=== PATIENT | male | born 1950 | race Caucasian/White ===

== ENCOUNTER → 2016-03-02 | Outpatient (CLI) | payer MEDICARE, OTHER ==
[2016-03-02 10:01] LABS: Basophils # (A) 0.1 k/uL (0-0.2); Basophils % (A) 1 %; CHCM 32.5; Eosinophils # (A) 0.1 k/uL (0-0.7); Eosinophils % (A) 1 %; HCT 45.3 % (39.0-53.0); HDW 2.46; HGB 14.6 gm/dL (13.0-17.5); Luc # (Auto) 0.11; Luc % (Auto) 1; Lymphocytes % (A) 18 %; MCH 30.8 pg (25.0-35.0); MCHC 32.2 g/dL (31.0-37.0); MCV 95.7 fL (80.0-100.0); Mean Platelet Volume 7.5; Monocytes # (A) 0.6 k/uL (0-1.0); Monocytes % (A) 5 %; Neutrophils % (A) 74 %; RBC 4.74 m/uL (4.30-5.90); RDW 13.5 % (11.5-15.5); WBC 10.9 k/uL (3.8-10.6)
[2016-03-02 10:23] LABS: INR 1.1 (<1.1); Partial Thromboplastin Time 30.5 sec (22.0-30.0); Prothrombin Time 10.7 sec (9.0-12.0)
== END | disposition home or self-care (01) ==
LOC: LABWHC1 09:37
PROVIDERS: ATTEND Internal Medicine Critical Care Medicine
DX: Q33.9 Congenital malformation of lung, unspecified (principal)
CPT/HCPCS: 36415; 85025; 85610; 85730

== ENCOUNTER 2016-06-09 08:26 | Inpatient (IN) | payer MEDICARE, OTHER ==
[2016-06-09] MEDS ORDERED: ALBUTEROL NEBULIZED 2.5 MG/3 ML INHALATION STA (08:29)
[2016-06-09] MEDS ORDERED: IPRATROPIUM 0.5 MG/2.5 ML NEBU INHALATION STA (08:29)
[2016-06-09] MEDS ORDERED: methylPREDNISolone SOD SUCCI 125 MG/2 ML VIAL IV STA (08:29)
[2016-06-09] MEDS ORDERED: SODIUM CHLORIDE 0.9% 1,000 ML IV STA (08:29)
--- NOTE | 2016-06-09 08:46 | ED ---
General Adult HPI - General Chief complaint: Shortness of Breath Stated complaint: Difficulty Breathing Time Seen by Provider: 06/09/16 08:29 Source: EMS, RN notes reviewed, old records reviewed Mode of arrival: EMS Limitations: no limitations - History of Present Illness Initial comments: This is a 65-year-old male here for evaluation of shortness of cough and congestion. Patient suffers from COPD and asthma, patient's been out of inhaler at home and getting progressively worse, no fevers or chest pain. - Related Data Home Medications Medication Instructions Recorded Confirmed FLUoxetine HCL [PROzac] 40 mg PO QAM 11/10/14 08/14/15 Furosemide [Lasix] 40 mg PO QAM 11/10/14 08/14/15 Lisinopril [Prinivil] 20 mg PO QAM 11/10/14 08/14/15 Nitroglycerin Sl Tabs [Nitrostat] 0.4 mg SUBLINGUAL Q5M PRN 11/10/14 08/14/15 Pravastatin Sodium [Pravachol] 40 mg PO 11/10/14 08/14/15 Spironolactone [Aldactone] 25 mg PO QAM 11/10/14 08/14/15 Warfarin [Coumadin] 3 mg PO SUMOWEFRSA 11/10/14 08/12/15 Multivitamin [Men's Multi-Vitamin] 1 tab PO DAILY 06/12/15 08/12/15 Warfarin [Coumadin] 4.5 mg PO TUTH 06/12/15 08/12/15 FLUoxetine HCL [Fluoxetine HCl] 20 mg PO 07/23/15 08/14/15 Fluticasone/Vilanterol [Breo 1 puff INHALATION QA 08/12/15 08/14/15 Ellipta 100-25 Mcg Iinhaler] Ipratropium/Albuterol Sulfate 1 puff INHALATION TID PRN 08/12/15 08/14/15 [Combivent Respimat Inhaler] Metoprolol Tartrate [Lopressor] 100 mg PO BID 08/12/15 08/14/15 Allergies Allergy/AdvReac Type Severity Reaction Status Date / Time No Known Allergies Allergy Verified 08/12/15 15:59 Review of Systems ROS Statement: Those systems with pertinent positive or pertinent negative responses have been documented in the HPI. ROS Other: All systems not noted in ROS Statement are negative. Past Medical History Past Medical History: Atrial Fibrillation, Asthma, Heart Failure, COPD Additional Past Medical History / Comment(s): "2-masses right upper and lower lobes of lungs". Mildly mental impairMENT .PATIENT IS HIS OWN GUARDIAN. History of Any Multi-Drug Resistant Organisms: None Reported Past Surgical History: No Surgical Hx Reported Past Anesthesia/Blood Transfusion Reactions: No Reported Reaction Additional Past Anesthesia/Blood Transfusion Reaction / Comment(s): Never has general anesthesia,unknown family hx Past Psychological History: Depression Smoking Status: Former smoker Past Alcohol Use History: None Reported Additional Past Alcohol Use History / Comment(s): Smokes 1+ ppd SINCE 1963. Past Drug Use History: None Reported - Past Family History Mother History Unknown: Yes Father History Unknown: Yes General Exam Limitations: no limitations General appearance: alert, anxious Head exam: Present: atraumatic, normocephalic, normal inspection Eye exam: Present: normal appearance, PERRL, EOMI. Absent: scleral icterus, conjunctival injection, periorbital swelling ENT exam: Present: normal exam, mucous membranes moist Neck exam: Present: normal inspection. Absent: tenderness, meningismus, lymphadenopathy Respiratory exam: Present: normal lung sounds bilaterally, wheezes, rales, accessory muscle use, decreased breath sounds, prolonged expiratory. Absent: respiratory distress, rhonchi, stridor Cardiovascular Exam: Present: regular rate, normal rhythm, normal heart sounds. Absent: systolic murmur, diastolic murmur, rubs, gallop, clicks GI/Abdominal exam: Present: soft, normal bowel sounds. Absent: distended, tenderness, guarding, rebound, rigid Extremities exam: Present: normal inspection, full ROM, normal capillary refill. Absent: tenderness, pedal edema, joint swelling, calf tenderness Back exam: Present: normal inspection Neurological exam: Present: alert, oriented X3, CN II-XII intact Psychiatric exam: Present: normal affect, normal mood Skin exam: Present: warm, dry, intact, normal color. Absent: rash Course Vital Signs 06/09/16 06/09/16 06/09/16 08:28 09:03 09:15 Temperature 96.9 F L Pulse Rate 71 92 81 Respiratory 24 20 Rate Blood Pressure 163/102 171/87 O2 Sat by Pulse 97 100 Oximetry 06/09/16 10:14 Temperature 974 F H Pulse Rate 81 Respiratory 18 Rate Blood Pressure 155/80 O2 Sat by Pulse 99 Oximetry - Reevaluation(s) Reevaluation #1: 06/09/16 10:23 Patient does have significant improvement status post breathing treatment prolonged Medical Decision Making - Medical Decision Making 65-year-old male the ER for reevaluation shortness of breath, multifactorial shortness of breath including CHF COPD. Patient will be admitted for evaluation by cardiology [id number] breathing treatments and steroids. - Lab Data Result diagrams: 06/09/16 09:00 06/09/16 09:00 Lab Results 06/09/16 06/09/16 06/09/16 Range/Units 09:00 09:00 09:00 WBC 10.6 (3.8-10.6) k/uL RBC 4.40 (4.30-5.90) m/uL Hgb 13.9 (13.0-17.5) gm/dL Hct 41.4 (39.0-53.0) % MCV 94.1 (80.0-100.0) fL MCH 31.5 (25.0-35.0) pg MCHC 33.5 (31.0-37.0) g/dL RDW 14.6 (11.5-15.5) % Plt Count 225 (150-450) k/uL Neutrophils % 79 % Lymphocytes % 12 % Monocytes % 5 % Eosinophils % 1 % Basophils % 0 % Neutrophils # 8.3 H (1.3-7.7) k/uL Lymphocytes # 1.3 (1.0-4.8) k/uL Monocytes # 0.6 (0-1.0) k/uL Eosinophils # 0.1 (0-0.7) k/uL Basophils # 0.0 (0-0.2) k/uL PT (9.0-12.0) sec INR (<1.1) APTT (22.0-30.0) sec Sodium 142 (137-145) mmol/L Potassium 4.4 (3.5-5.1) mmol/L Chloride 108 H (98-107) mmol/L Carbon Dioxide 27 (22-30) mmol/L Anion Gap 7 mmol/L BUN 22 H (9-20) mg/dL Creatinine 0.84 (0.66-1.25) mg/dL Est GFR (MDRD) Af Amer >60 (>60 ml/min/1.73 sqM) Est GFR (MDRD) Non-Af >60 (>60 ml/min/1.73 sqM) Glucose 101 H (74-99) mg/dL Calcium 9.1 (8.4-10.2) mg/dL Magnesium 1.9 (1.6-2.3) mg/dL Total Bilirubin 0.8 (0.2-1.3) mg/dL AST 24 (17-59) U/L ALT 34 (21-72) U/L Alkaline Phosphatase 82 (38-126) U/L Total Creatine Kinase 29 L (55-170) U/L CK-MB (CK-2) 0.8 (0.0-2.4) ng/mL CK-MB (CK-2) Rel Index 2.8 Troponin I 0.012 (0.000-0.034) ng/mL NT-Pro-B Natriuret Pep pg/mL Total Protein 6.7 (6.3-8.2) g/dL Albumin 3.6 (3.5-5.0) g/dL 06/09/16 06/09/16 Range/Units 09:00 09:00 WBC (3.8-10.6) k/uL RBC (4.30-5.90) m/uL Hgb (13.0-17.5) gm/dL Hct (39.0-53.0) % MCV (80.0-100.0) fL MCH (25.0-35.0) pg MCHC (31.0-37.0) g/dL RDW (11.5-15.5) % Plt Count (150-450) k/uL Neutrophils % % Lymphocytes % % Monocytes % % Eosinophils % % Basophils % % Neutrophils # (1.3-7.7) k/uL Lymphocytes # (1.0-4.8) k/uL Monocytes # (0-1.0) k/uL Eosinophils # (0-0.7) k/uL Basophils # (0-0.2) k/uL PT 38.1 H (9.0-12.0) sec INR 3.9 (<1.1) APTT 34.7 H (22.0-30.0) sec Sodium (137-145) mmol/L Potassium (3.5-5.1) mmol/L Chloride (98-107) mmol/L Carbon Dioxide (22-30) mmol/L Anion Gap mmol/L BUN (9-20) mg/dL Creatinine (0.66-1.25) mg/dL Est GFR (MDRD) Af Amer (>60 ml/min/1.73 sqM) Est GFR (MDRD) Non-Af (>60 ml/min/1.73 sqM) Glucose (74-99) mg/dL Calcium (8.4-10.2) mg/dL Magnesium (1.6-2.3) mg/dL Total Bilirubin (0.2-1.3) mg/dL AST (17-59) U/L ALT (21-72) U/L Alkaline Phosphatase (38-126) U/L Total Creatine Kinase (55-170) U/L CK-MB (CK-2) (0.0-2.4) ng/mL CK-MB (CK-2) Rel Index Troponin I (0.000-0.034) ng/mL NT-Pro-B Natriuret Pep 9910 pg/mL Total Protein (6.3-8.2) g/dL Albumin (3.5-5.0) g/dL - Radiology Data Radiology results: report reviewed (Chest x-ray positive for CHF and COPD), image reviewed Disposition Clinical Impression: Acute exacerbation of chronic obstructive airways disease, Asthma with status asthmaticus, Acute pulmonary edema Disposition: ADMITTED IP TO THIS HOSP Condition: Fair Referrals: Shar De Los Santos MD [Primary Care Provider] - 1-2 days
[2016-06-09 09:18] LABS: INR 3.9 (<1.1); Partial Thromboplastin Time 34.7 sec (22.0-30.0); Prothrombin Time 38.1 sec (9.0-12.0)
[2016-06-09 09:22] LABS: ALT 34 U/L (21-72); AST 24 U/L (17-59); Alkaline Phosphatase 82 U/L (38-126); Anion Gap 7 mmol/L; Blood Urea Nitrogen 22 mg/dL (9-20); Calcium 9.1 mg/dL (8.4-10.2); Carbon Dioxide 27 mmol/L (22-30); Chloride 108 mmol/L (98-107); Glucose 101 mg/dL (74-99); Magnesium 1.9 mg/dL (1.6-2.3); Non-African American GFR(MDRD) >60 (>60 ml/min/1.73 sqM); Potassium 4.4 mmol/L (3.5-5.1); Sodium 142 mmol/L (137-145); Total Bilirubin 0.8 mg/dL (0.2-1.3); Total Protein 6.7 g/dL (6.3-8.2)
[2016-06-09 09:23] LABS: Basophils % (A) 0 %; CH 30.6; CHCM 32.7; Eosinophils # (A) 0.1 k/uL (0-0.7); Eosinophils % (A) 1 %; HCT 41.4 % (39.0-53.0); HDW 3.03; HGB 13.9 gm/dL (13.0-17.5); Luc # (Auto) 0.23; Luc % (Auto) 2; Lymphocytes # (A) 1.3 k/uL (1.0-4.8); Lymphocytes % (A) 12 %; MCH 31.5 pg (25.0-35.0); MCHC 33.5 g/dL (31.0-37.0); MCV 94.1 fL (80.0-100.0); Mean Platelet Volume 6.9; Monocytes # (A) 0.6 k/uL (0-1.0); Monocytes % (A) 5 %; Neutrophils # (A) 8.3 k/uL (1.3-7.7); Neutrophils % (A) 79 %; RDW 14.6 % (11.5-15.5); WBC 10.6 k/uL (3.8-10.6); WBC (Perox) 10.61
[2016-06-09 09:57] LABS: Creatine Kinase MB 0.8 ng/mL (0.0-2.4); Troponin I 0.012 ng/mL (0.000-0.034)
--- NOTE | 2016-06-09 09:57 | XR ---
EXAMINATION TYPE: XR chest 2V DATE OF EXAM: 06/09/2016 9:49 AM COMPARISON: Chest x-ray and CT chest August 14, 2015. PET/CT June 29, 2015. HISTORY: History of emphysema presents with shortness of breath for a few days. TECHNIQUE: Frontal and lateral views of the chest are obtained. FINDINGS: Osseous structures are intact. There is cardiomegaly with atherosclerotic thoracic aorta pr esent. There is background of moderate emphysematous change. There are new small bilateral pleural ef fusions and mild central vascular congestion. There is right hilar nodularity and new left midlung no dularity noted. No pneumothorax is seen bilaterally. IMPRESSION: 1. Suspect CHF exacerbation as there is cardiomegaly with new central vascular congestion and small b ilateral pleural effusions. Clinical correlation advised. 2. There is background of chronic emphysematous change with more prominent right hilar and new left m id lung lateral nodularity raising concern for neoplastic progression. Advise CT or PET/CT confirmati on based on clinical correlation.
[2016-06-09] MEDS: SODIUM CHLORIDE 0.9% 1,000 ML IV SCH (11:49)
[2016-06-09] MEDS: INSULIN LISPRO (humaLOG) 300 UNIT/3 ML VIAL SQ SCH ×3 (11:52→21:36)
[2016-06-09 11:54] LABS: Glucose,Whole Blood 121 mg/dL (75-99)
[2016-06-09] MEDS: FUROSEMIDE 10 MG/ML 4 ML VIAL IV SCH ×2 (12:01→21:08)
[2016-06-09] MEDS: methylPREDNISolone SOD SUCCI 125 MG/2 ML VIAL IV SCH ×3 (12:01→23:25)
[2016-06-09] MEDS: IPRATROPIUM-ALBUTEROL 3 ML NEB INHALATION SCH ×3 (12:06→20:05)
[2016-06-09] MEDS ORDERED: ALBUTEROL NEBULIZED 2.5 MG/3 ML INHALATION PRN (16:25)
[2016-06-09 16:59] LABS: Glucose,Whole Blood 254 mg/dL (75-99)
[2016-06-09 17:40] LABS: Troponin I <0.012 ng/mL (0.000-0.034)
[2016-06-09] MEDS ORDERED: RX INFO: IV CONTRAST WAS GIVEN 1 EACH MISC MISCELLANE PRN (19:18)
[2016-06-09 20:45] LABS: Glucose,Whole Blood 275 mg/dL (75-99)
--- NOTE | 2016-06-09 20:47 | CT ---
EXAMINATION TYPE: CT chest w con DATE OF EXAM: 06/09/2016 8:39 PM COMPARISON: 06/05/1715 HISTORY: Abnormal cxr. CT DLP: 839.00 mGycm Automated exposure control for dose reduction was used. CONTRAST: CT scan of the chest is performed with IV Contrast, patient injected with 100 mL of Omnipaque 300. FINDINGS: LUNGS: Spiculated mass right upper lobe persists and currently measures 3.5 x 2.6 cm versus 2.7 x 2.3 cm. There is an additional mass within the right lower lobe which is also larger in size and current ly measures 4.4 x 2.9 cm versus 2.7 x 2.2 cm. There is also an enlarging mass within the left upper l obe which measures 2.7 cm in greatest dimension versus a prior measurement of 8 mm. No additional nod ules or masses seen. There is evidence of lingular scarring. Hyperinflation compatible with COPD uppe r lobe emphysematous changes. Small bilateral pleural effusions are now present. Mild basilar compressive atelectasis. MEDIASTINUM: There is subcarinal adenopathy measuring 1.6 cm in short axis. AP window lymph nodes naresh sure less than 1 cm as well as right paratracheal lymph nodes measuring less than 1 cm as well. No hi lar adenopathy is present. Thoracic aorta is of normal caliber. The heart is not enlarged. Small werner cardial effusion with greatest AP dimension of 1.3 cm. UPPER ABDOMEN: Calcified gallstones are identified. OTHER: No additional significant abnormality is seen. IMPRESSION: 1. Enlarging pulmonary masses as discussed above with small pleural effusions and subcarinal adenopat hy.
[2016-06-09] MEDS: METOPROLOL TARTRATE 50 MG TAB PO SCH (21:08)
[2016-06-09] MEDS: PRAVASTATIN SODIUM 40 MG TAB PO SCH (21:08)
[2016-06-09 21:25] LABS: Glucose,Whole Blood 297 mg/dL (75-99)
[2016-06-09 21:36] LABS: Hemoglobin A1C 5.9 % (4.2-6.1)
[2016-06-09 23:38] LABS: Creatine Kinase MB 0.9 ng/mL (0.0-2.4); Troponin I <0.012 ng/mL (0.000-0.034)
[2016-06-10] MEDS: methylPREDNISolone SOD SUCCI 125 MG/2 ML VIAL IV SCH ×4 (05:29→23:06)
[2016-06-10 06:38] LABS: Glucose,Whole Blood 192 mg/dL (75-99)
[2016-06-10] MEDS: IPRATROPIUM-ALBUTEROL 3 ML NEB INHALATION SCH ×4 (07:00→21:09)
[2016-06-10] MEDS: INSULIN LISPRO (humaLOG) 300 UNIT/3 ML VIAL SQ SCH ×4 (07:38→20:58)
[2016-06-10] MEDS: METOPROLOL TARTRATE 50 MG TAB PO SCH ×2 (07:39→20:57)
[2016-06-10] MEDS: FLUoxetine HCL 20 MG CAP PO SCH (07:39)
[2016-06-10] MEDS: LISINOPRIL 20 MG TAB PO SCH (07:39)
--- NOTE | 2016-06-10 08:36 | HP ---
DATE OF ADMISSION: 06/09/2016 Chief complaint is difficulty breathing, shortness of breath. HISTORY OF PRESENT ILLNESS: This is 65-year-old with a history of COPD, asthma, ( ) he had has been out of his inhalers at home, progressive shortness of breath. He has no chest pain, chest x-ray in the ER showed possibly presumption of metastases. Recommend CAT scan for possible diffuse metastatic cancer of some kind. Home medications include: 1. Prozac 40 daily. 2. Lasix 40 daily. 3. Prinivil 20 daily. 4. Nitrostat p.r.n. 5. Pravachol 40 daily. 6. Aldactone 25 daily. 7. Coumadin 3 mg. 8. Multivitamin. 9. Alternating with 4.5 mg Wednesday and . 10. Coumadin ( ) 20 daily. 11. A total of 60 mg daily ( ) daily. 12. Combivent ( ) 1 puff t.i.d. 13. Metoprolol 100 b.i.d. ALLERGIES: No known drug allergies. REVIEW OF SYSTEMS: 14 point review of systems negative except for HPI. In the ER his BNP was 6000 something. He has atrial fibrillation. Has had congestive heart failure, COPD, masses in his right upper and right lower lobe pneumonia, unclear. The patient has a legal guardian. He has history of depression. Former smoker. FAMILY HISTORY: Mother and father unsure. PHYSICAL EXAM: Temp 96.9. Pulse 70s to 80s, respiratory rate 20 to 24, blood pressure 160s-170s/67-102, pulse ox 97% on room air. He is alert and anxious. Pupils equal, round and reactive to light and accommodation. Extraocular movements intact. External ear canals within normal limits. Lungs show scattered wheezes and rhonchi. HEART: S1, S2. GI: Soft, nontender. EXTREMITIES: No cyanosis, clubbing, edema. NEUROLOGIC: Cranial nerves are intact. PSYCH: Fair mood and affect. SKIN: Warm and dry. Sodium 142, potassium 4.4, white count 10.6, hemoglobin 13.9. ASSESSMENT: 1. Acute chronic obstructive pulmonary disease exacerbation. 2. Acute asthma exacerbation. 3. Abnormal chest x-ray rule out metastatic cancer of some kind. We will do CT of the chest. 4. Acute congestive heart failure with elevated d-dimer. Cardiology will be consulted. Placed on IV Lasix. CT scan of the chest will be done.
[2016-06-10] MEDS ORDERED: cefTRIAXone 1,000 MG VIAL (IM USE) IM SCH (09:00)
[2016-06-10] MEDS ORDERED: AZITHROMYCIN 500 MG in SODIUM CHLORIDE 0.9% 250 ML IVPB SCH (09:00)
[2016-06-10] MEDS ORDERED: ENOXAPARIN 40 MG/0.4 ML SYRINGE SQ SCH (09:00)
[2016-06-10] MEDS: FUROSEMIDE 10 MG/ML 4 ML VIAL IV SCH ×2 (09:54→20:57)
--- NOTE | 2016-06-10 09:57 | ECHOF ---
Referral Reason:Heart Failure MEASUREMENTS -------- HEIGHT: 167.6 cm WEIGHT: 95.3 kg BP: 171/87 RVIDd: 3.1 cm (< 3.3) IVSd: 0.9 cm (0.6 - 1.1) LVIDd: 6.3 cm (3.9 - 5.3) LVPWd: 0.9 cm (0.6 - 1.1) IVSs: 1.2 cm LVIDs: 5.7 cm LVPWs: 1.2 cm LAESV Index (A-L): 28.56 ml/m Ao Diam: 3.3 cm (2.0 - 3.7) LA Diam: 4.5 cm (2.7 - 3.8) MV EXCURSION: 21.692 mm (> 18.000) MV EF SLOPE: 57 mm/s (70 - 150) EPSS: 1.0 cm MV E Dannie: 1.29 m/s MV DecT: 184 ms MV A Dannie: 0.60 m/s MV E/A Ratio: 5.56 AV maxP.47 mmHg AV meanP.96 mmHg RAP: 5.00 mmHg RVSP: 51.91 mmHg FINDINGS -------- Undetermined rhythm. This was a technically adequate study. There is mild global hypokinesis of LV . Overall left ventricular systolic function is moderately impaired with, an EF between 35 - 40 %. The right ventricle is mildly enlarged. Normal LA size by volume 22+/-6 ml/m2. The right atrium is normal in size. There is mild aortic valve sclerosis. Peak/mean gradient across the Aortic Valve is 15.47mmHg / 9.96mmHg. The mitral valve leaflets are mildly thickened. Mild mitral regurgitation is present. [id number] tricuspid regurgitation present. There is moderate pulmonary hypertension. The right ventricular systolic pressure, as measured by Doppler, is 51.91mmHg. There is no pulmonic regurgitation present. Echo free space may represent effusion or a pericardial fat pad. There is a trivial pericardial effusion present. CONCLUSIONS -------- 1. Overall left ventricular systolic function is moderately impaired with, an EF between 35 - 40 %. 2. Echo free space may represent effusion or a pericardial fat pad. 3. There is a trivial pericardial effusion present. 4. The right ventricle is mildly enlarged. 5. There is mild aortic valve sclerosis. 6. Peak/mean gradient across the Aortic Valve is 15.47mmHg / 9.96mmHg. 7. The mitral valve leaflets are mildly thickened. 8. Mild mitral regurgitation is present. 9. Adtr-zj-hqipcjaf tricuspid regurgitation present. 10. There is moderate pulmonary hypertension. 11. The right ventricular systolic pressure, as measured by Doppler, is 51.91mmHg. CURING MACHINE OPERATOR: Hannah Parker RDCS
[2016-06-10 10:11] LABS: INR 2.9 (<1.1); Prothrombin Time 27.9 sec (9.0-12.0)
[2016-06-10] MEDS: SODIUM CHLORIDE 0.9% 1,000 ML IV SCH (10:59)
[2016-06-10 11:47] LABS: Glucose,Whole Blood 264 mg/dL (75-99)
[2016-06-10] MEDS: MULTIVITAMINS, THERA 1 EACH TAB PO SCH (12:07)
--- NOTE | 2016-06-10 12:48 | P.CNPUL ---
History of Present Illness Consult date: 06/10/16 Reason for consult: dyspnea, cough, lung mass, abnormal CXR/CT Chief complaint: Shortness of breath and congestion History of present illness: This is a 65-year-old male who presented to the emergency department complaining of shortness of breath and congestion for the last few days. The patient states that he did not have fevers at home but he did have chills. The patient's chest x-ray shows congestive heart failure, cardiomegaly, pulmonary vascular congestion, small bilateral effusions, emphysema, right hilar and left midlung nodularity. The patient did have a CT of the chest in 2016 which showed a 2.4 x 2.2 x 2.3 cm right middle lobe lung mass. It also showed a 0.7 cm lingula nodule. He did undergo repeat CT imaging during this admission which showed a right upper lobe 3.5 x 2.6 cm lung mass, a right lower lobe 4.4 x 2.9 cm lung mass, left upper lobe 2.7 cm lung mass, emphysema, small pericardial effusion, 1.6 cm subcarinal lymph node. The patient states he does not follow with any donor services technician in the office. He did have a PET scan in June 2015 which showed increased FDG activity in the right upper lobe mass and slight uptake in the right lower lobe mass. The patient did have an echocardiogram which showed an RVSP of 51 mmHg and an ejection fraction of 35-40%. The patient states he does use Symbicort twice a day at home. He denies any weight loss. He states his appetite has been good. He denies any cough. He is an active smoker although he states he quit a few days ago. He smokes a half a pack per day since the age of [age] years old. He is currently retired and working a few days a week at the local [employer]. He denies any snoring or sleep apnea. He does not wear oxygen at home. Review of Systems All systems: negative Past Medical History Past Medical History: Atrial Fibrillation, Asthma, Heart Failure, COPD, Diabetes Mellitus, Hyperlipidemia, Hypertension, Osteoarthritis (OA) Additional Past Medical History / Comment(s): "2-masses right upper and lower lobes of lungs". Mildly mental impairment .PATIENT IS HIS OWN GUARDIAN. Back pain, anemia. NIDDM type II. History of Any Multi-Drug Resistant Organisms: None Reported Past Surgical History: Heart Catheterization Additional Past Surgical History / Comment(s): 07/25/15 bronchoscopy, 08/14/15 bronchoscopy with BAL,biopsy,brushings of RUL lesion, cardiac cath 2006-no intervention, colonoscopy with bening polypectomy, bilateral cataract removals with lens implants. Past Anesthesia/Blood Transfusion Reactions: No Reported Reaction Additional Past Anesthesia/Blood Transfusion Reaction / Comment(s): Never has general anesthesia,unknown family hx Past Psychological History: Depression, Schizophrenia Additional Psychological History / Comment(s): Pt resides at [facility]. He uses no assistive device. He uses to drive but states "I don't have enough money to drive anymore." Smoking Status: Current every day smoker Past Alcohol Use History: None Reported Additional Past Alcohol Use History / Comment(s): Smokes 1+ ppd SINCE 1963. Past Drug Use History: None Reported - Past Family History Mother History Unknown: Yes Additional Family Medical History / Comment(s): Mother had depression. Father History Unknown: Yes Family Medical History: No Reported History Additional Family Medical History / Comment(s): Father was healthy Medications and Allergies Home Medications Medication Instructions Recorded Confirmed Type Furosemide [Lasix] 40 mg PO QAM 11/10/14 06/09/16 History Lisinopril [Prinivil] 20 mg PO QAM 11/10/14 06/09/16 History Nitroglycerin Sl Tabs [Nitrostat] 0.4 mg SUBLINGUAL Q5M PRN 11/10/14 06/09/16 History Pravastatin Sodium [Pravachol] 40 mg PO HS 11/10/14 06/09/16 History Warfarin [Coumadin] 3 mg PO DAILY 11/10/14 06/09/16 History Multivitamin [Men's Multi-Vitamin] 1 tab PO DAILY 06/12/15 06/09/16 History FLUoxetine HCL [Fluoxetine HCl] 20 mg PO DAILY 07/23/15 06/09/16 History Metoprolol Tartrate [Lopressor] 100 mg PO BID 08/12/15 06/09/16 History Albuterol Sulfate [Ventolin HFA] 2 puff INHALATION RT-Q6H PRN 06/09/16 06/09/16 History Allergies Allergy/AdvReac Type Severity Reaction Status Date / Time No Known Allergies Allergy Verified 08/12/15 15:59 Physical Exam Osteopathic Statement: *. No significant issues noted on an osteopathic structural exam other than those noted in the History and Physical/Consult. Vitals: Vital Signs Temp Pulse Pulse Resp BP Pulse Ox 06/10/16 11:01 76 06/10/16 10:50 74 06/10/16 07:10 78 06/10/16 07:00 97.0 F L 76 97 16 112/63 95 06/10/16 00:00 79 16 06/09/16 23:00 97.5 F L 79 16 133/77 91 L 06/09/16 20:07 80 06/09/16 19:57 80 06/09/16 16:09 96 06/09/16 16:00 88 90 18 06/09/16 15:00 97.1 F L 90 18 137/83 96 Intake and Output 06/09/16 06/10/16 06/10/16 22:59 06:59 14:59 Other: # Voids 2 2 Weight 95 kg Neuro: Patient is alert and oriented 3, no acute distress Cardiovascular: Regular rate and rhythm, S1/S2 Lungs: Coarse breath sounds bilaterally Abdomen: Soft nontender nondistended positive bowel sounds Extremities: No edema Results - Laboratory Findings CBC and BMP: 06/09/16 09:00 06/09/16 09:00 PT/INR, D-dimer PT 27.9 sec (9.0-12.0) H 06/10/16 09:05 INR 2.9 (<1.1) 06/10/16 09:05 Abnormal lab findings: Abnormal Labs 06/09/16 06/09/16 06/09/16 11:52 16:57 20:43 PT POC Glucose (mg/dL) 121 H 254 H 275 H 06/09/16 06/10/16 06/10/16 21:23 06:37 09:05 PT 27.9 H POC Glucose (mg/dL) 297 H 192 H 06/10/16 11:45 PT POC Glucose (mg/dL) 264 H - Diagnostic Findings Chest x-ray: report reviewed, image reviewed CT scan - chest: report reviewed, image reviewed Assessment and Plan Plan: Acute hypoxic respiratory failure Acute exacerbation of COPD Multiple worsening pulmonary nodules and masses Emphysema Small pericardial effusion History of atrial fibrillation Congestive heart failure, systolic, ejection fraction 35-40% Moderate pulmonary hypertension with an RVSP of 51 mmHg Active tobacco abuse Suspect possible underlying sleep apnea Small bilateral pleural effusions Coumadin coagulopathy O2 to maintain saturation greater than or equal to 88% Bronchodilators Pulmicort IV Solu-Medrol IV antibiotics Coumadin dosing per primary team We will consult interventional radiology for CT-guided needle biopsy of lung masses. Smoking cessation is highly recommended Incentive spirometry and pulmonary hygiene GI and DVT prophylaxis Thank you for this consultation we'll continue to follow along
--- NOTE | 2016-06-10 14:36 | CONS ---
DATE OF CONSULTATION: CLINICAL INFORMATION: Patient admitted to the hospital with shortness of breath, difficulty in breathing. Patient is known to have chronic atrial fibrillation, hypertension, chronic obstructive lung disease, quit smoking 2 years ago and also history of congestive heart failure. Patient denies any weight loss or change in bowel habits. Patient has multiple nodules in the upper and lower lobes consistent with most likely metastatic process. Do not know the primary site and needs to further work-up for a primary diagnostic work-up. Patient admitted to the hospital with mild exacerbation of chronic congestive heart failure which is essentially doing better now and also possibly secondary to exacerbation of chronic bronchitis and does not appear to be in any distress at present time, no hemoptysis. Patient also used to be a heavy drinker and quit drinking alcohol about 6 years ago. Patient has cardiomyopathy with ejection fractions around 30%, 35%. Patient's medications at the present time are: 1. Prozac 40 mg p.o. daily 2. Furosemide 40 mg p.o. daily. 3. Lisinopril 20 mg p.o. daily. 4. Nitroglycerin 0.4 mg sublingually p.r.n. for chest pain. 5. Fluoxetine 20 mg p.o. daily. 6. Fluticasone inhaler daily. 7. Patient is also on Ellipta inhaler, Atrovent, ipratropium and albuterol inhaler, Combivent inhaler. 8. Metoprolol tartrate 100 mg p.o. b.i.d. ALLERGIES: None mentioned. Past history remarkable for atrial fibrillation, asthma, heart failure, COPD, history of lung masses and history of alcohol abuse as mentioned above. History of smoking, quit smoking a couple of years ago. Physical examination revealed well-developed, well-nourished 65-year-old gentleman, not in any acute distress, oriented x3 with a pulse rate of 71 beats per minute and regular, blood pressure of 150/90 mmHg, respirations are 20. Head normocephalic. HEENT unremarkable. Neck is supple. No JVD. CARDIAC EXAMINATION: S1 and S2 with regular rate and rhythm. No noted. ABDOMEN: Soft, no organomegaly. Active bowel sounds. EXTREMITIES: No pedal edema. CHIEF YEOMAN EXAMINATION: Grossly within normal limits. EKG revealed atrial fibrillation with controlled ventricular rate. Left anterior fascicular block otherwise unremarkable. Laboratory data is unremarkable except BNP levels were noted to be 9,900. Electrolytes are within normal limits. Hemoglobin is normal. ASSESSMENT: 1. Acute exacerbation of chronic congestive heart failure. 2. Acute exacerbation of chronic obstructive lung disease. 3. History of asthma, history of hypertension. 4. History of smoking and alcohol abuse. 5. Multiple metastases in the lungs consistent with multiple metastatic process, primary needs to be worked up. 6. Cardiomyopathy without any anginal symptoms, dilated with an ejection fraction is around 30% to 35%, on appropriate medical therapy at this time. RECOMMENDATIONS: Patient may need work off primary cancer. Will be happy to see him if our services are needed in the future.
[2016-06-10 17:11] LABS: Glucose,Whole Blood 150 mg/dL (75-99)
[2016-06-10] MEDS ORDERED: WARFARIN 3 MG TAB PO SCH (18:00)
[2016-06-10 20:34] LABS: Glucose,Whole Blood 270 mg/dL (75-99)
[2016-06-10] MEDS: PRAVASTATIN SODIUM 40 MG TAB PO SCH (20:57)
[2016-06-10] MEDS: BUDESONIDE 0.5 MG/2 ML NEBU INHALATION SCH (21:09)
[2016-06-11] MEDS: methylPREDNISolone SOD SUCCI 125 MG/2 ML VIAL IV SCH (05:12)
[2016-06-11 06:42] LABS: Glucose,Whole Blood 173 mg/dL (75-99)
[2016-06-11] MEDS: IPRATROPIUM-ALBUTEROL 3 ML NEB INHALATION SCH ×4 (07:20→20:34)
[2016-06-11] MEDS: BUDESONIDE 0.5 MG/2 ML NEBU INHALATION SCH ×2 (07:20→20:34)
[2016-06-11] MEDS: INSULIN LISPRO (humaLOG) 300 UNIT/3 ML VIAL SQ SCH ×4 (07:54→20:11)
[2016-06-11] MEDS: METOPROLOL TARTRATE 50 MG TAB PO SCH ×2 (07:54→20:10)
[2016-06-11] MEDS: AZITHROMYCIN 500 MG TAB PO SCH (07:55)
[2016-06-11] MEDS: FLUoxetine HCL 20 MG CAP PO SCH (07:55)
[2016-06-11] MEDS: LISINOPRIL 20 MG TAB PO SCH (07:55)
[2016-06-11] MEDS: PANTOPRAZOLE 40 MG TABLET PO SCH (07:55)
[2016-06-11 08:35] LABS: Mean Platelet Volume 6.9
[2016-06-11 09:02] LABS: INR 2.3 (<1.1); Prothrombin Time 22.5 sec (9.0-12.0)
--- NOTE | 2016-06-11 09:52 | P.PN ---
Subjective Principal diagnosis: Patient seen and examined. Patient states his breathing is better today. He denies any hemoptysis or chest pain. He states his cough is improving. He is currently at 2 L nasal cannula. Objective - Vital Signs Vital signs: Vital Signs Temp 97.1 F L 06/11/16 07:00 Pulse 75 06/11/16 08:00 Resp 16 06/11/16 08:00 BP 107/66 06/11/16 07:00 Pulse Ox 98 06/11/16 07:00 Intake & Output 06/10/16 06/11/16 06/11/16 18:59 06:59 18:59 Weight 95.5 kg Other: # Voids 2 2 1 # Bowel Movements 1 - Exam Gen.: Patient is alert and oriented 3, no acute distress Cardiovascular: Regular rate and rhythm, S1/S2 Lungs: Coarse breath sounds bilaterally Abdomen: Soft nontender nondistended positive bowel sounds Extremities: No edema - Labs CBC & Chem 7: 06/11/16 07:55 06/09/16 09:00 Labs: Abnormal Lab Results - Last 24 Hours (Table) 06/10/16 06/10/16 06/10/16 Range/Units 09:05 11:45 17:09 PT 27.9 H (9.0-12.0) sec POC Glucose (mg/dL) 264 H 150 H (75-99) mg/dL 06/10/16 06/11/16 06/11/16 Range/Units 20:31 06:41 07:53 PT 22.5 H (9.0-12.0) sec POC Glucose (mg/dL) 270 H 173 H (75-99) mg/dL Assessment and Plan Plan: Acute hypoxic respiratory failure Acute exacerbation of COPD Multiple worsening pulmonary nodules and masses Emphysema Small pericardial effusion History of atrial fibrillation Congestive heart failure, systolic, ejection fraction 35-40% Moderate pulmonary hypertension with an RVSP of 51 mmHg Active tobacco abuse Suspect possible underlying sleep apnea Small bilateral pleural effusions Coumadin coagulopathy O2 to maintain saturation greater than or equal to 88% Bronchodilators Pulmicort IV Solu-Medrol IV antibiotics Coumadin on hold for biopsy Interventional radiology for CT-guided needle biopsy of lung masses. Smoking cessation is highly recommended Incentive spirometry and pulmonary hygiene GI and DVT prophylaxis
[2016-06-11 11:31] LABS: Glucose,Whole Blood 237 mg/dL (75-99)
[2016-06-11] MEDS: MULTIVITAMINS, THERA 1 EACH TAB PO SCH (11:36)
[2016-06-11] MEDS: FUROSEMIDE 10 MG/ML 4 ML VIAL IV SCH ×2 (11:36→22:41)
[2016-06-11] MEDS: SODIUM CHLORIDE 0.9% 1,000 ML IV SCH (11:36)
[2016-06-11] MEDS ORDERED: PHYTONADIONE ORAL 5 MG/5 ML ORAL.SYRG PO STA (11:49)
[2016-06-11 17:02] LABS: Glucose,Whole Blood 164 mg/dL (75-99)
[2016-06-11] MEDS: methylPREDNISolone SOD SUCCI 40 MG/ML 1 ML VIAL IV SCH ×2 (17:25→23:07)
[2016-06-11] MEDS: PRAVASTATIN SODIUM 40 MG TAB PO SCH (20:10)
[2016-06-11 20:32] LABS: Glucose,Whole Blood 213 mg/dL (75-99)
[2016-06-12] MEDS: BUDESONIDE 0.5 MG/2 ML NEBU INHALATION SCH ×2 (07:04→20:51)
[2016-06-12] MEDS: IPRATROPIUM-ALBUTEROL 3 ML NEB INHALATION SCH ×4 (07:04→20:51)
[2016-06-12 07:27] LABS: Glucose,Whole Blood 156 mg/dL (75-99)
[2016-06-12] MEDS: methylPREDNISolone SOD SUCCI 40 MG/ML 1 ML VIAL IV SCH ×3 (07:31→23:44)
[2016-06-12] MEDS: INSULIN LISPRO (humaLOG) 300 UNIT/3 ML VIAL SQ SCH ×4 (07:31→21:31)
[2016-06-12] MEDS: PANTOPRAZOLE 40 MG TABLET PO SCH (07:32)
[2016-06-12] MEDS: AZITHROMYCIN 500 MG TAB PO SCH (08:22)
[2016-06-12] MEDS: METOPROLOL TARTRATE 50 MG TAB PO SCH ×2 (08:23→21:31)
[2016-06-12] MEDS: FLUoxetine HCL 20 MG CAP PO SCH (08:23)
[2016-06-12] MEDS: LISINOPRIL 20 MG TAB PO SCH (08:23)
[2016-06-12 08:36] LABS: Basophils % (A) 0 %; CH 29.9; CHCM 31.3; Eosinophils % (A) 0 %; HCT 44.6 % (39.0-53.0); HDW 2.59; HGB 13.9 gm/dL (13.0-17.5); Hypochromasia Slight; Luc # (Auto) 0.07; Luc % (Auto) 0; Lymphocytes # (A) 0.4 k/uL (1.0-4.8); Lymphocytes % (A) 2 %; MCH 29.9 pg (25.0-35.0); MCHC 31.2 g/dL (31.0-37.0); MCV 95.8 fL (80.0-100.0); Mean Platelet Volume 6.9; Monocytes # (A) 0.4 k/uL (0-1.0); Monocytes % (A) 2 %; Neutrophils # (A) 18.2 k/uL (1.3-7.7); Neutrophils % (A) 96 %; RBC 4.66 m/uL (4.30-5.90); RDW 14.4 % (11.5-15.5); WBC 19.1 k/uL (3.8-10.6); WBC (Perox) 19.88
[2016-06-12 08:43] LABS: INR 1.2 (<1.1); Prothrombin Time 12.1 sec (9.0-12.0)
[2016-06-12 08:53] LABS: ALT 33 U/L (21-72); AST 22 U/L (17-59); Alkaline Phosphatase 73 U/L (38-126); Anion Gap 10 mmol/L; Blood Urea Nitrogen 50 mg/dL (9-20); Calcium 9.1 mg/dL (8.4-10.2); Carbon Dioxide 33 mmol/L (22-30); Chloride 98 mmol/L (98-107); Glucose 143 mg/dL (74-99); Non-African American GFR(MDRD) 60 (>60 ml/min/1.73 sqM); Potassium 4.3 mmol/L (3.5-5.1); Sodium 141 mmol/L (137-145); Total Bilirubin 0.6 mg/dL (0.2-1.3); Total Protein 6.6 g/dL (6.3-8.2)
[2016-06-12] MEDS: NICOTINE 14MG/24HR PATCH TRANSDERM SCH (09:24)
[2016-06-12] MEDS: FUROSEMIDE 10 MG/ML 4 ML VIAL IV SCH ×2 (09:24→21:31)
[2016-06-12] MEDS ORDERED: RX INFO: IV CONTRAST WAS GIVEN 1 EACH MISC MISCELLANE PRN (10:52)
--- NOTE | 2016-06-12 10:56 | PN ---
DATE OF SERVICE: 06/11/2016 SUBJECTIVE: A 65-year-old white male admitted with pneumonia, pulmonary nodules. He has elevated INR, is supposed to given protamine and lower that down today, vitamin K at which time he will get a fine-needle biopsy. Temperature 97.1, pulse 75, respiratory 16 to 18, blood pressure 107/66, O2 is 98%. CARDIOVASCULAR: Regular rate and rhythm. LUNGS: Show scattered wheezes. ABDOMEN: Soft. EXTREMITIES: No cyanosis, clubbing, or edema. Sodium 142, potassium 4.4, BUN of 22, creatinine 0.84. ASSESSMENT: 1. Hypoxemic respiratory failure with history of chronic obstructive pulmonary disease exacerbation, worsening pulmonary nodules, masses, emphysema, pericardial effusion, atrial fibrillation, on Coumadin. 2. Congestive heart failure, systolic, ejection fraction 35% to 40%. 3. Pulmonary hypertension. 4. Nicotine addiction. 5. Sleep apnea. 6. Pleural effusions. 7. Coumadin therapy. Continue maintain oxygen and bronchodilators, Pulmicort, IV Solu-Medrol, IV antibiotics. ( ) needle biopsy. Please see further orders.
--- NOTE | 2016-06-12 11:55 | CT ---
EXAMINATION TYPE: CT abdomen pelvis w con DATE OF EXAM: 06/12/2016 11:41 AM COMPARISON: 06/12/2015 and chest 06/09/2016 HISTORY: 65-year-old male suspected lung cancer with mets TECHNIQUE: Contiguous axial scanning of the abdomen and pelvis following administration of 100 ml Omn ipaque 300 IV contrast. Delayed images through the kidneys and coronal/sagittal reconstructions perf ormed. CT DLP: 1536.90 mGycm Automated exposure control for dose reduction was used. FINDINGS: The heart is borderline enlarged with trace anterior basilar pericardial fluid. Overall pericardial e ffusion has decreased from 06/09/2016. Coronary vessel calcifications are present and are a marker for coronary artery disease. Interval resolution of previous pleural effusions. However, there is redemonstration of a 3.9 x 2.2 c m posterior medial right lower lobe mass. This is measured lightly smaller as compared to prior exam possibly due to resolving adjacent pleural-parenchymal opacities. Underlying emphysematous change. There is a small hiatal hernia 7 mm hypodensity right hepatic lobe too small fractured CT characterization, unchanged from 06/12/2015 , probable cysts. There is reflux of contrast into the hepatic veins. Portal venous system is patent. Calcified granuloma centrally in the liver. No biliary ductal dilatation. There are a couple calculi dependent within the gallbladder measuring up to 8 mm. No abnormal gallbla dder distention. Adrenal glands, spleen, pancreas appear within normal limits. Mild bilateral perinephric stranding probably senescent change. Symmetric uptake and excretion of con trast by both kidneys. No dilated small bowel, free fluid, or free air. No mesenteric or retroperitoneal lymphadenopathy. Moderate atherosclerotic calcifications within the abdominal aorta and iliac arteries. No dilated small bowel, free fluid, or free air. There is mild to moderate stool burden with occasional left hemicolonic diverticulosis but more exten sive within the sigmoid colon. No pericolonic inflammatory change. Bladder is urine distended. Pelvic phleboliths. No abnormal fluid collection in the pelvis or pelvic lymphadenopathy. Bones: Degenerative changes at the hips, SI joints, and lower lumbar spine. Endplate spondylosis lowe r thoracic spine. IMPRESSION: 1. COMPARED TO 06/09/2016, THERE IS DECREASING PERICARDIAL FLUID, RESOLVED PLEURAL EFFUSIONS, AND R EDEMONSTRATED MEDIAL POSTERIOR RIGHT LOWER LOBE MASS. 2. A 7 MM HYPODENSE LESION WITHIN THE RIGHT LIVER LOBE IS UNCHANGED FROM 06/13/2015. THIS IS TOO SMALL FOR ACCURATE CT CHARACTERIZATION, BUT GIVEN STABILITY, MOST LIKELY REPRESENTS A BENIGN CYST. 3. OTHERWISE, NO EVIDENCE FOR METASTATIC DISEASE WITHIN THE ABDOMEN OR PELVIS. 4. SMALL HIATAL HERNIA, REFLUX OF CONTRAST INTO THE HEPATIC VEINS SUGGESTING ELEVATED RIGHT HEART PRE SSURES, CHOLELITHIASIS, AND SIGMOID DIVERTICULOSIS.
[2016-06-12] MEDS: SODIUM CHLORIDE 0.9% 1,000 ML IV SCH (11:57)
[2016-06-12 12:34] LABS: Glucose,Whole Blood 268 mg/dL (75-99)
[2016-06-12] MEDS: MULTIVITAMINS, THERA 1 EACH TAB PO SCH (12:40)
--- NOTE | 2016-06-12 16:27 | P.PN ---
Subjective Principal diagnosis: Headache Patient seen and examined. Patient states he is feeling a little bit better today. The risks and benefits of doing a lung biopsy are discussed with the patient at length. Objective - Vital Signs Vital signs: Vital Signs Temp 97.0 F L 06/12/16 15:00 Pulse 108 H 06/12/16 16:12 Resp 20 06/12/16 15:00 BP 125/93 06/12/16 15:00 Pulse Ox 99 06/12/16 15:00 Intake & Output 06/11/16 06/12/16 06/12/16 18:59 06:59 18:59 Intake Total 200 450 240 Output Total 2074 2099 Balance 200 -1625 -1860 Intake: Oral 200 450 240 Output: Urine 2074 2099 Other: # Voids 3 2 # Bowel Movements 1 0 - Exam Gen.: Patient is alert and oriented 3, no acute distress Cardiovascular: Regular rate and rhythm, S1/S2 Lungs: Coarse breath sounds bilaterally Abdomen: Soft nontender nondistended positive bowel sounds Extremities: No edema - Labs CBC & Chem 7: 06/12/16 07:27 06/12/16 07:27 Labs: Abnormal Lab Results - Last 24 Hours (Table) 06/11/16 06/11/16 06/12/16 Range/Units 17:01 20:07 07:26 WBC (3.8-10.6) k/uL Neutrophils # (1.3-7.7) k/uL Lymphocytes # (1.0-4.8) k/uL PT (9.0-12.0) sec Carbon Dioxide (22-30) mmol/L BUN (9-20) mg/dL Glucose (74-99) mg/dL POC Glucose (mg/dL) 164 H 213 H 156 H (75-99) mg/dL 06/12/16 06/12/16 06/12/16 Range/Units 07:27 07:27 07:27 WBC 19.1 H (3.8-10.6) k/uL Neutrophils # 18.2 H (1.3-7.7) k/uL Lymphocytes # 0.4 L (1.0-4.8) k/uL PT 12.1 H (9.0-12.0) sec Carbon Dioxide 33 H (22-30) mmol/L BUN 50 H (9-20) mg/dL Glucose 143 H (74-99) mg/dL POC Glucose (mg/dL) (75-99) mg/dL 06/12/16 Range/Units 12:31 WBC (3.8-10.6) k/uL Neutrophils # (1.3-7.7) k/uL Lymphocytes # (1.0-4.8) k/uL PT (9.0-12.0) sec Carbon Dioxide (22-30) mmol/L BUN (9-20) mg/dL Glucose (74-99) mg/dL POC Glucose (mg/dL) 268 H (75-99) mg/dL Assessment and Plan Plan: Acute hypoxic respiratory failure Acute exacerbation of COPD Multiple worsening pulmonary nodules and masses Emphysema Small pericardial effusion History of atrial fibrillation Congestive heart failure, systolic, ejection fraction 35-40% Moderate pulmonary hypertension with an RVSP of 51 mmHg Active tobacco abuse Suspect possible underlying sleep apnea Small bilateral pleural effusions Coumadin coagulopathy O2 to maintain saturation greater than or equal to 88% Bronchodilators Pulmicort IV Solu-Medrol IV antibiotics Coumadin on hold for biopsy Interventional radiology for CT-guided needle biopsy of lung masses. Smoking cessation is highly recommended Incentive spirometry and pulmonary hygiene GI and DVT prophylaxis Check CT A/P and bone scan. Case is discussed with Dr. Goodson. The patient is highly likely to get a pneumothorax with biopsy of lung masses. The patient is made aware of this and is agreeable to undergo biopsy given the known risk. Discussing with this with the radiology Department we will check a CT of the abdomen and pelvis and bone scan to assess for any other possible areas of biopsy. If no other areas are noted we will proceed with CT needle guided lung biopsy. The patient is well aware of the risks.
[2016-06-12 17:40] LABS: Glucose,Whole Blood 131 mg/dL (75-99)
--- NOTE | 2016-06-12 20:27 | NM ---
EXAMINATION TYPE: NM bone scan whole body DATE OF EXAM: 06/12/2016 5:40 PM COMPARISON: CT abdomen pelvis dated 06/12/[address] thorax dated 06/09/2016. HISTORY: 65-year-old male with suspected lung cancer metastasis. Delayed whole-body scanning was performed following the injection of 27.2 mCi Tc 99m MDP. Images acq uired 4 hours post injection. FINDINGS: Radiotracer uptake within multiple contiguous right and left ribs one corresponded to the CT thorax d ated 06/09/2016 represents multiple contiguous rib fractures. Additional radiotracer uptake is seen in the region of the low thorax corresponding to the necrotic pulmonary masses. Symmetric radiotracer uptake within the appendicular skeleton at the acromioclavicular joints, femora l tibial joints, and around the carpals are all degenerative in nature. IMPRESSION: 1. No findings suspicious for osseous metastasis. 2. Radiotracer uptake within multiple contiguous right and left ribs corresponding to healing rib fra ctures in comparison to the prior CT. 3. Radiotracer also evident within the known lung masses. 4. Symmetric degenerative changes of the appendicular skeleton.
[2016-06-12 21:04] LABS: Glucose,Whole Blood 263 mg/dL (75-99)
[2016-06-12] MEDS: PRAVASTATIN SODIUM 40 MG TAB PO SCH (21:31)
[2016-06-13] MEDS: BUDESONIDE 0.5 MG/2 ML NEBU INHALATION SCH ×2 (06:55→18:55)
[2016-06-13] MEDS: IPRATROPIUM-ALBUTEROL 3 ML NEB INHALATION SCH ×4 (06:55→18:55)
[2016-06-13 07:34] LABS: Glucose,Whole Blood 162 mg/dL (75-99)
[2016-06-13] MEDS: LISINOPRIL 20 MG TAB PO SCH (09:05)
[2016-06-13] MEDS: METOPROLOL TARTRATE 50 MG TAB PO SCH ×2 (09:05→21:29)
[2016-06-13] MEDS: methylPREDNISolone SOD SUCCI 40 MG/ML 1 ML VIAL IV SCH ×2 (09:05→21:29)
[2016-06-13] MEDS: NICOTINE 14MG/24HR PATCH TRANSDERM SCH (09:05)
[2016-06-13] MEDS: INSULIN LISPRO (humaLOG) 300 UNIT/3 ML VIAL SQ SCH ×4 (09:06→21:28)
--- NOTE | 2016-06-13 09:38 | PN ---
DATE OF SERVICE: 06/12/2016 SUBJECTIVE: A 65-year-old white male with multiple pulmonary nodules, COPD, CHF. He is supposed to get waiting for INR to ( ) for him to get a lung biopsy. Otherwise he is improving clinically. Vital signs stable, afebrile. He is on oxygen 2 to 3 liters. CARDIOVASCULAR: S1, S2. LUNGS: Scattered wheeze and rhonchi. HEMATOLOGIC: Negative Homans. PSYCHIATRIC: Fair mood and affect. ASSESSMENT: 1. Lung nodules suspicious for metastatic cancer versus pneumonia. 2. Chronic obstructive pulmonary disease exacerbation. 3. Congestive heart failure. Lung biopsy is planned. If we can lower his INR. Continue broad-spectrum antibiotics. Consult notes are appreciated.
[2016-06-13 11:38] LABS: Glucose,Whole Blood 174 mg/dL (75-99)
[2016-06-13] MEDS: MULTIVITAMINS, THERA 1 EACH TAB PO SCH (12:37)
[2016-06-13] MEDS: FLUoxetine HCL 20 MG CAP PO SCH (12:37)
[2016-06-13] MEDS: PANTOPRAZOLE 40 MG TABLET PO SCH (12:37)
[2016-06-13] MEDS: AZITHROMYCIN 500 MG TAB PO SCH (12:37)
[2016-06-13] MEDS: FUROSEMIDE 10 MG/ML 4 ML VIAL IV SCH ×2 (12:37→21:29)
[2016-06-13] MEDS: SODIUM CHLORIDE 0.9% 1,000 ML IV SCH (12:38)
--- NOTE | 2016-06-13 14:17 | P.PN ---
Subjective Principal diagnosis: Acute exacerbation of COPD Patient seen and examined. Patient states he is feeling a little bit better today. He is ambulating in the room. He did undergo CT scanning of his abdomen and pelvis as well as a bone scan. Neither test showed metastatic lesions that could be biopsied at this time. This is discussed with the patient at length. The patient is agreeable to undergo CT-guided needle biopsy of his lung mass. He understands the risks of pneumothorax and that he will likely need a chest tube. All of his questions are answered. He is agreeable to undergo the procedure in order to get a diagnosis. Objective - Vital Signs Vital signs: Vital Signs Temp 96.9 F L 06/13/16 07:00 Pulse 104 H 06/13/16 11:07 Resp 20 06/13/16 07:00 BP 173/99 06/13/16 07:00 Pulse Ox 99 06/13/16 07:00 Intake & Output 06/12/16 06/13/16 06/13/16 18:59 06:59 18:59 Intake Total 240 Output Total 2100 1450 Balance -1860 -1450 Weight 62 kg Intake: Oral 240 Output: Urine 2100 1450 Other: # Voids 2 3 # Bowel Movements 0 - Exam Gen.: Patient is alert and oriented 3, no acute distress Cardiovascular: Regular rate and rhythm, S1/S2 Lungs: Coarse breath sounds bilaterally Abdomen: Soft nontender nondistended positive bowel sounds Extremities: No edema - Labs CBC & Chem 7: 06/12/16 07:27 06/12/16 07:27 Labs: Abnormal Lab Results - Last 24 Hours (Table) 06/12/16 06/12/16 06/13/16 Range/Units 17:39 21:02 07:23 POC Glucose (mg/dL) 131 H 263 H 162 H (75-99) mg/dL 06/13/16 Range/Units 11:35 POC Glucose (mg/dL) 174 H (75-99) mg/dL Assessment and Plan Plan: Acute hypoxic respiratory failure Acute exacerbation of COPD Multiple worsening pulmonary nodules and masses Emphysema Small pericardial effusion History of atrial fibrillation Congestive heart failure, systolic, ejection fraction 35-40% Moderate pulmonary hypertension with an RVSP of 51 mmHg Active tobacco abuse Suspect possible underlying sleep apnea Small bilateral pleural effusions Coumadin coagulopathy O2 to maintain saturation greater than or equal to 88% Bronchodilators Pulmicort IV Solu-Medrol IV antibiotics Coumadin on hold for biopsy, will initiate heparin subcu for DVT prophylaxis, hold on Wednesday night in anticipation of biopsy on Wednesday Interventional radiology for CT-guided needle biopsy of lung masses, plan for possible biopsy Wednesday per Dr. Goodson. Smoking cessation is highly recommended Incentive spirometry and pulmonary hygiene GI and DVT prophylaxis Case is discussed with Dr. Goodson. The patient is highly likely to get a pneumothorax with biopsy of lung masses. The patient is made aware of this and is agreeable to undergo biopsy given the known risk.
[2016-06-13 16:54] LABS: Glucose,Whole Blood 210 mg/dL (75-99)
--- NOTE | 2016-06-13 17:25 | PN ---
DATE OF SERVICE: 06/13/2016 SUBJECTIVE: This patient is a 65-year-old white male with acute exacerbation of COPD who had a CT scan of the abdomen and pelvis and bone scan which were negative for metastatic lesions that could be biopsied. He was agreeable to have a CT biopsy of his lung mass, and this will be done in the near future. Temperature 96.9, pulse 104, respiratory rate 18 to 20, blood pressure 170s over 90s, oxygen 99% on room air. He is an obese white male in no acute distress. CARDIOVASCULAR: S1, S2. LUNGS: Coarse breath sounds. ABDOMEN: Soft, nontender. Normal bowel sounds. EXTREMITIES: No cyanosis, clubbing or edema. White count 19.1. BUN 50, creatinine 1.21. ASSESSMENT: 1. Multiple worsening pulmonary nodules and masses. 2. Emphysema. 3. Pericardial effusion. 4. History of atrial fibrillation. 5. Congestive heart failure, systolic; ejection fraction 35% to 40%. 6. Moderate pulmonary hypertension. 7. Nicotine addiction. 8. Severe sleep apnea. 9. Bilateral pleural effusions. 10. Coumadin coagulopathy. Wednesday night will do the biopsy. On Wednesday CT-guided will be done. ( ) Pulmicort, albuterol, Atrovent, IV Solu-Medrol, IV antibiotics will be maintained. Please see further orders.
[2016-06-13] MEDS: HEPARIN SODIUM,PORCINE 5,000 UNIT/ML 1 ML VIAL SQ SCH (17:50)
[2016-06-13 20:41] LABS: Glucose,Whole Blood 223 mg/dL (75-99)
[2016-06-13] MEDS: PRAVASTATIN SODIUM 40 MG TAB PO SCH (21:29)
[2016-06-14] MEDS: HEPARIN SODIUM,PORCINE 5,000 UNIT/ML 1 ML VIAL SQ SCH ×4 (00:14→23:44)
[2016-06-14 06:37] LABS: Glucose,Whole Blood 154 mg/dL (75-99)
[2016-06-14] MEDS: BUDESONIDE 0.5 MG/2 ML NEBU INHALATION SCH ×2 (07:10→20:41)
[2016-06-14] MEDS: IPRATROPIUM-ALBUTEROL 3 ML NEB INHALATION SCH ×4 (07:10→20:41)
[2016-06-14] MEDS: LISINOPRIL 20 MG TAB PO SCH (08:05)
[2016-06-14] MEDS: FLUoxetine HCL 20 MG CAP PO SCH (08:05)
[2016-06-14] MEDS: NICOTINE 14MG/24HR PATCH TRANSDERM SCH (08:05)
[2016-06-14] MEDS: PANTOPRAZOLE 40 MG TABLET PO SCH (08:05)
[2016-06-14] MEDS: AZITHROMYCIN 500 MG TAB PO SCH (08:05)
[2016-06-14] MEDS: METOPROLOL TARTRATE 50 MG TAB PO SCH ×2 (08:05→21:17)
[2016-06-14] MEDS: methylPREDNISolone SOD SUCCI 40 MG/ML 1 ML VIAL IV SCH ×2 (08:06→21:17)
[2016-06-14] MEDS: INSULIN LISPRO (humaLOG) 300 UNIT/3 ML VIAL SQ SCH ×4 (08:06→21:17)
[2016-06-14 08:28] LABS: Basophils % (A) 0 %; CH 30.2; CHCM 31.8; Eosinophils % (A) 0 %; HCT 45.3 % (39.0-53.0); HGB 14.2 gm/dL (13.0-17.5); Luc % (Auto) 1; Lymphocytes # (A) 0.4 k/uL (1.0-4.8); Lymphocytes % (A) 3 %; MCH 29.9 pg (25.0-35.0); MCHC 31.4 g/dL (31.0-37.0); MCV 95.4 fL (80.0-100.0); Monocytes # (A) 0.4 k/uL (0-1.0); Monocytes % (A) 3 %; Neutrophils # (A) 12.9 k/uL (1.3-7.7); Neutrophils % (A) 93 %; RBC 4.75 m/uL (4.30-5.90); RDW 14.2 % (11.5-15.5); WBC 13.9 k/uL (3.8-10.6)
[2016-06-14 09:01] LABS: ALT 42 U/L (21-72); AST 25 U/L (17-59); Alkaline Phosphatase 69 U/L (38-126); Anion Gap 6 mmol/L; Blood Urea Nitrogen 48 mg/dL (9-20); Calcium 8.8 mg/dL (8.4-10.2); Carbon Dioxide 34 mmol/L (22-30); Chloride 98 mmol/L (98-107); Glucose 152 mg/dL (74-99); Non-African American GFR(MDRD) >60 (>60 ml/min/1.73 sqM); Potassium 4.2 mmol/L (3.5-5.1); Sodium 138 mmol/L (137-145); Total Bilirubin 0.8 mg/dL (0.2-1.3); Total Protein 6.2 g/dL (6.3-8.2)
[2016-06-14 11:49] LABS: Glucose,Whole Blood 279 mg/dL (75-99)
[2016-06-14] MEDS: FUROSEMIDE 10 MG/ML 4 ML VIAL IV SCH ×2 (12:36→21:16)
[2016-06-14] MEDS: MULTIVITAMINS, THERA 1 EACH TAB PO SCH (12:36)
[2016-06-14] MEDS: SODIUM CHLORIDE 0.9% 1,000 ML IV SCH (12:36)
--- NOTE | 2016-06-14 14:32 | P.PN ---
Subjective Principal diagnosis: Acute exacerbation of COPD Patient seen and examined. Patient states his breathing is much better today. He denies any shortness of breath or chest pain. He states his intermittent cough. He has had no fevers or chills. Objective - Vital Signs Vital signs: Vital Signs Temp 97.2 F L 06/14/16 07:00 Pulse 88 06/14/16 07:27 Resp 18 06/14/16 07:00 BP 153/91 06/14/16 07:00 Pulse Ox 96 06/14/16 07:26 Intake & Output 06/13/16 06/14/16 06/14/16 18:59 06:59 18:59 Intake Total 160 160 Output Total 1050 Balance -890 160 Weight 47 kg Intake: IV 160 160 Sodium Chloride 0.9% 1, 160 160 000 ml @ 20 mls/hr IV . Q24H FABIENNE Rx#:[id number] Output: Urine 1050 Other: # Voids 3 - Exam Gen.: Patient is alert and oriented 3, no acute distress Cardiovascular: Regular rate and rhythm, S1/S2 Lungs: Coarse breath sounds bilaterally Abdomen: Soft nontender nondistended positive bowel sounds Extremities: No edema - Labs CBC & Chem 7: 06/14/16 07:55 06/14/16 07:55 Labs: Abnormal Lab Results - Last 24 Hours (Table) 06/13/16 06/13/16 06/14/16 Range/Units 16:48 20:36 06:36 WBC (3.8-10.6) k/uL Neutrophils # (1.3-7.7) k/uL Lymphocytes # (1.0-4.8) k/uL Carbon Dioxide (22-30) mmol/L BUN (9-20) mg/dL Glucose (74-99) mg/dL POC Glucose (mg/dL) 210 H 223 H 154 H (75-99) mg/dL Total Protein (6.3-8.2) g/dL Albumin (3.5-5.0) g/dL 06/14/16 06/14/16 06/14/16 Range/Units 07:55 07:55 11:48 WBC 13.9 H (3.8-10.6) k/uL Neutrophils # 12.9 H (1.3-7.7) k/uL Lymphocytes # 0.4 L (1.0-4.8) k/uL Carbon Dioxide 34 H (22-30) mmol/L BUN 48 H (9-20) mg/dL Glucose 152 H (74-99) mg/dL POC Glucose (mg/dL) 279 H (75-99) mg/dL Total Protein 6.2 L (6.3-8.2) g/dL Albumin 3.3 L (3.5-5.0) g/dL Assessment and Plan Plan: Acute hypoxic respiratory failure Acute exacerbation of COPD Multiple worsening pulmonary nodules and masses Emphysema Small pericardial effusion History of atrial fibrillation Congestive heart failure, systolic, ejection fraction 35-40% Moderate pulmonary hypertension with an RVSP of 51 mmHg Active tobacco abuse Suspect possible underlying sleep apnea Small bilateral pleural effusions Coumadin coagulopathy O2 to maintain saturation greater than or equal to 88% Bronchodilators Pulmicort IV Solu-Medrol IV antibiotics Coumadin on hold for biopsy, will initiate heparin subcu for DVT prophylaxis, hold on Wednesday night in anticipation of biopsy on Wednesday Interventional radiology for CT-guided needle biopsy of lung masses, plan for possible biopsy Wednesday per Dr. Goodson. Smoking cessation is highly recommended Incentive spirometry and pulmonary hygiene GI and DVT prophylaxis Case is discussed with Dr. Goodson. The patient is highly likely to get a pneumothorax with biopsy of lung masses. The patient is made aware of this and is agreeable to undergo biopsy given the known risk.
[2016-06-14 16:45] LABS: Glucose,Whole Blood 151 mg/dL (75-99)
[2016-06-14] MEDS: PRAVASTATIN SODIUM 40 MG TAB PO SCH (21:18)
[2016-06-14 21:25] LABS: Glucose,Whole Blood 171 mg/dL (75-99)
[2016-06-15 07:08] LABS: Glucose,Whole Blood 168 mg/dL (75-99)
--- NOTE | 2016-06-15 07:16 | PN ---
DATE OF SERVICE: 06/14/2016 SUBJECTIVE: A 65-year-old white male with acute COPD exacerbation, intermittent cough, scheduled for a biopsy of the lung tomorrow. Temp 97.2, pulse 88, respiratory rate 16 to 18, blood pressure running 156/91, O2 is 96%. White count 13.9, hemoglobin 14.2, sodium 138, potassium 4.2. LUNGS: Coarse breathing. Abdomen is soft. HEMATOLOGIC: Negative Homans. ASSESSMENT: 1. Acute hypoxemic respiratory failure. 2. Exacerbation of chronic obstructive pulmonary disease. 3. Worsening of pulmonary nodules or masses. 4. Emphysema. 5. Small pericardial effusion. 6. Atrial fibrillation. 7. Congestive heart failure. 8. Moderate pulmonary hypertension. 9. Nicotine addiction. 10. Sleep apnea on BiPAP. 11. Bilateral pleural effusion. 12. Coumadin toxicity. Bronchodilators, Pulmicort, IV Solu-Medrol, IV antibiotics. Biopsy will be done tomorrow morning, CAT scan and needle biopsy. Continue further treatment with IV antibiotics.
[2016-06-15] MEDS: PANTOPRAZOLE 40 MG TABLET PO SCH (08:21)
[2016-06-15] MEDS: AZITHROMYCIN 500 MG TAB PO SCH (08:21)
[2016-06-15] MEDS: FLUoxetine HCL 20 MG CAP PO SCH (08:22)
[2016-06-15] MEDS: methylPREDNISolone SOD SUCCI 40 MG/ML 1 ML VIAL IV SCH ×2 (08:25→20:30)
[2016-06-15] MEDS: LISINOPRIL 20 MG TAB PO SCH (08:25)
[2016-06-15] MEDS: METOPROLOL TARTRATE 50 MG TAB PO SCH ×2 (08:25→20:30)
[2016-06-15] MEDS: NICOTINE 14MG/24HR PATCH TRANSDERM SCH (08:25)
[2016-06-15] MEDS: INSULIN LISPRO (humaLOG) 300 UNIT/3 ML VIAL SQ SCH ×4 (08:26→20:30)
[2016-06-15] MEDS: FUROSEMIDE 10 MG/ML 4 ML VIAL IV SCH ×2 (09:38→21:28)
[2016-06-15 10:38] LABS: INR 1.1 (<1.1)
[2016-06-15] MEDS: IPRATROPIUM-ALBUTEROL 3 ML NEB INHALATION SCH ×4 (10:51→21:00)
[2016-06-15] MEDS: BUDESONIDE 0.5 MG/2 ML NEBU INHALATION SCH ×2 (10:51→21:00)
--- NOTE | 2016-06-15 11:17 | P.PN ---
Subjective Principal diagnosis: Lung mass Patient seen and examined. Patient states he feels well today. He denies any shortness of breath or chest pain. He is hoping to have the lung biopsy done today. Objective - Vital Signs Vital signs: Vital Signs Temp 97 F L 06/15/16 07:00 Pulse 80 06/15/16 11:09 Resp 20 06/15/16 07:00 BP 153/91 06/15/16 07:00 Pulse Ox 98 06/15/16 07:00 Intake & Output 06/14/16 06/15/16 06/15/16 18:59 06:59 18:59 Intake Total 160 210 Balance 160 210 Weight 93.44 kg Intake: IV 160 160 Sodium Chloride 0.9% 1, 160 160 000 ml @ 20 mls/hr IV . Q24H FABIENNE Rx#:[id number] Intake, IV Titration 50 Amount cefTRIAXone 1,000 mg In 50 Sodium Chloride 0.9% 50 ml @ 100 mls/hr IVPB Q12HR FABIENNE Rx#:[id number] Oral 0 Other: # Voids 3 1 # Bowel Movements 1 - Exam Gen.: Patient is alert and oriented 3, no acute distress Cardiovascular: Regular rate and rhythm, S1/S2 Lungs: Coarse breath sounds bilaterally Abdomen: Soft nontender nondistended positive bowel sounds Extremities: No edema - Labs CBC & Chem 7: 06/14/16 07:55 06/14/16 07:55 Labs: Abnormal Lab Results - Last 24 Hours (Table) 06/14/16 06/14/16 06/14/16 Range/Units 11:48 16:38 21:09 POC Glucose (mg/dL) 279 H 151 H 171 H (75-99) mg/dL 06/15/16 Range/Units 06:39 POC Glucose (mg/dL) 168 H (75-99) mg/dL Assessment and Plan Plan: Acute hypoxic respiratory failure Acute exacerbation of COPD Multiple worsening pulmonary nodules and masses Emphysema Small pericardial effusion History of atrial fibrillation Congestive heart failure, systolic, ejection fraction 35-40% Moderate pulmonary hypertension with an RVSP of 51 mmHg Active tobacco abuse Suspect possible underlying sleep apnea Small bilateral pleural effusions Coumadin coagulopathy O2 to maintain saturation greater than or equal to 88% Bronchodilators Pulmicort IV Solu-Medrol IV antibiotics Coumadin on hold for biopsy, will initiate heparin subcu for DVT prophylaxis, hold on Wednesday night in anticipation of biopsy on Wednesday Interventional radiology for CT-guided needle biopsy of lung masses, plan for possible biopsy Wednesday per Dr. Goodson. Smoking cessation is highly recommended Incentive spirometry and pulmonary hygiene GI and DVT prophylaxis Case is discussed with Dr. Goodson. The patient is highly likely to get a pneumothorax with biopsy of lung masses. The patient is made aware of this and is agreeable to undergo biopsy given the known risk.
[2016-06-15] MEDS: SODIUM CHLORIDE 0.9% 1,000 ML IV SCH (11:27)
[2016-06-15 11:32] VITALS: BMI 33.2
[2016-06-15] MEDS: MULTIVITAMINS, THERA 1 EACH TAB PO SCH (11:32)
[2016-06-15 12:26] LABS: Glucose,Whole Blood 147 mg/dL (75-99)
[2016-06-15 17:01] LABS: Glucose,Whole Blood 160 mg/dL (75-99)
[2016-06-15] MEDS: PRAVASTATIN SODIUM 40 MG TAB PO SCH (20:31)
[2016-06-15 20:41] LABS: Glucose,Whole Blood 196 mg/dL (75-99)
[2016-06-16 07:19] LABS: Glucose,Whole Blood 146 mg/dL (75-99)
[2016-06-16] MEDS: INSULIN LISPRO (humaLOG) 300 UNIT/3 ML VIAL SQ SCH ×4 (07:49→20:57)
[2016-06-16] MEDS: AZITHROMYCIN 500 MG TAB PO SCH (08:13)
[2016-06-16] MEDS: NICOTINE 14MG/24HR PATCH TRANSDERM SCH (08:13)
[2016-06-16] MEDS: METOPROLOL TARTRATE 50 MG TAB PO SCH ×2 (08:13→20:42)
[2016-06-16] MEDS: LISINOPRIL 20 MG TAB PO SCH (08:13)
[2016-06-16] MEDS: PANTOPRAZOLE 40 MG TABLET PO SCH (08:13)
[2016-06-16] MEDS: methylPREDNISolone SOD SUCCI 40 MG/ML 1 ML VIAL IV SCH ×2 (08:13→20:41)
[2016-06-16] MEDS: FLUoxetine HCL 20 MG CAP PO SCH (08:13)
--- NOTE | 2016-06-16 08:23 | PN ---
SUBJECTIVE: This is 65-year-old white male with multiple pulmonary lesions, undergo a fine-needle biopsy today of the lung. The patient is slowly improving with IV antibiotics. Temperature is 97, pulse 80, respiratory rate 18 to 20, blood pressure 150s over 90s, O2 98% on room air. White count 13.9, hemoglobin 14.2. EXTREMITIES: No cyanosis, clubbing, edema. ABDOMEN: Soft. CARDIOVASCULAR: S1, S2. ASSESSMENT: 1. Acute hypoxemic respiratory failure. 2. Acute chronic obstructive pulmonary disease exacerbation, pulmonary nodules, mass. 3. Emphysema. 4. Pericardial effusion. 5. Atrial fibrillation. 6. Congestive heart failure, systolic. 7. Moderate pulmonary hypertension. 8. Active nicotine addiction. 9. Sleep apnea. 10. Coumadin coagulopathy. Continue with IV Solu-Medrol, IV antibiotics. Deep venous thrombosis prophylaxis. Await for biopsy.
[2016-06-16] MEDS: SODIUM CHLORIDE 0.9% 1,000 ML IV SCH (10:51)
[2016-06-16] MEDS: FUROSEMIDE 10 MG/ML 4 ML VIAL IV SCH (10:51)
[2016-06-16] MEDS: BUDESONIDE 0.5 MG/2 ML NEBU INHALATION SCH ×2 (11:14→19:54)
[2016-06-16] MEDS: IPRATROPIUM-ALBUTEROL 3 ML NEB INHALATION SCH ×4 (11:14→19:54)
[2016-06-16 12:29] LABS: Glucose,Whole Blood 166 mg/dL (75-99)
[2016-06-16] MEDS: MULTIVITAMINS, THERA 1 EACH TAB PO SCH (14:49)
--- NOTE | 2016-06-16 15:27 | XR ---
EXAMINATION TYPE: XR chest 1V portable DATE OF EXAM: 06/16/2016 3:18 PM CLINICAL HISTORY: Left lung biopsy TECHNIQUE: Single AP portable frontal view of the chest is obtained. COMPARISON: Chest x-ray and CTA chest June 09, 2016 FINDINGS: There is new small left apical pneumothorax estimated 5-10% after left lung biopsy. No med iastinal shift is seen. Right lung appears clear. Targeted left lung nodule is not well seen. There i s new left basilar opacity silhouetting left heart border consistent with developing infiltrate and/o r atelectasis. Cardiac silhouette size is stable and mildly enlarged with atherosclerotic thoracic ao rta. Osseous structures are intact. IMPRESSION: New small right apical pneumothorax estimated 5-10%. New developing left basilar atelecta sis and/or infiltrate.
--- NOTE | 2016-06-16 16:03 | CT ---
EXAMINATION TYPE: CT guided FNA DATE OF EXAM: 06/16/2016 3:10 PM HISTORY: Lung masses COMPARISON: NONE Maximal barrier technique was utilized. The skin overlying a suitable path to the lesion was localiz ed using CT and the overlying skin was prepped and draped. Lidocaine used for local anesthesia. A s kin alexus made with a scalpel. Using CT guidance, access was gained to the left upper lobe lesion wit h a 22-gauge needle through a 20-gauge guide. Aspirated specimen submitted to cytology. 4 passes we re performed in all. Following the procedure no immediate complications, post procedure chest x-ray pending at the time demonstrates small left apical pneumothorax. The patient is discharged in stabl e condition to observation. Hemostasis achieved. IMPRESSION: SUCCESSFUL CT GUIDED BIOPSY. PATHOLOGY PENDING. THIS PROCEDURE WAS PERFORMED BY THE UNDERSIGNED.
[2016-06-16 17:23] LABS: Glucose,Whole Blood 245 mg/dL (75-99)
--- NOTE | 2016-06-16 17:27 | XR ---
EXAMINATION TYPE: XR chest 1V portable DATE OF EXAM: 06/16/2016 3:10 PM COMPARISON: Chest x-ray 09 June 2016 HISTORY: Status post lung biopsy TECHNIQUE: Single frontal view of the chest is obtained. FINDINGS: Left apical pneumothorax is small. Consolidation persists at the left lung base. Left lung mass is not well seen. Right-sided lung mass is again noted. Heart is enlarged. IMPRESSION: Small left apical pneumothorax status post lung biopsy. Results called to Dr. Burgos tel ephonically at the time of performance of the exam.
[2016-06-16] MEDS: PRAVASTATIN SODIUM 40 MG TAB PO SCH (20:42)
[2016-06-16 20:56] LABS: Glucose,Whole Blood 265 mg/dL (75-99)
--- NOTE | 2016-06-16 21:32 | PN ---
DATE OF SERVICE: 06/16/2016 Patient is a 65-year-old male who just returned from Interventional Radiology for a biopsy of a mass in the left lung. Patient is sitting up at the bedside, is awake and alert, hemodynamically stable, afebrile, in no acute distress. PHYSICAL EXAMINATION: VITAL SIGNS: Temperature 97.0, heart rate 76, respiratory rate 22, blood pressure 144/97, oxygen saturation 94% on 2 L oxygen via nasal cannula. HEENT: Head is normocephalic, atraumatic. NECK: Supple. Trachea is midline. LUNGS: Diminished breath sounds. No clear rales or wheezes. HEART: S1 and S2 are heard. Not tachycardic. Heart sounds are distant. ABDOMEN: Soft. Bowel sounds are heard. EXTREMITIES: No edema. NEUROLOGIC: Patient is awake and alert. LABS: No new labs to review. IMAGING: Chest x-ray done after the biopsy showed a new small right apical pneumothorax estimated 5% to 10%, new developing left basilar atelectasis and/or infiltrate. IMPRESSION: 1. Acute hypoxic respiratory failure. 2. Small right upper lobe pneumothorax. 3. Acute exacerbation of chronic obstructive pulmonary disease. 4. Multiple worsening pulmonary nodules and masses. 5. Emphysema. 6. Small pericardial effusion. 7. History of atrial fibrillation. 8. Congestive heart failure, systolic; ejection fraction 35% to 40%. 9. Moderate pulmonary hypertension with an RVSP of 51 mmHg. 10. Active tobacco abuse. 11. Suspect possible underlying sleep apnea. 12. Small bilateral pleural effusions. PLAN: Continue oxygen to maintain saturations greater than or equal to 88%. Repeat chest x-ray will be obtained in 2 hours to further evaluate for small pneumothorax on the right. Patient is having frequent vital signs q.15 minutes for the next hour. Continue the bronchodilators and the aerosolized steroids with the IV Solu-Medrol and the IV antibiotics. Coumadin will be restarted tomorrow. Smoking cessation is highly recommended. Continue incentive spirometry and pulmonary hygiene. Continue GI and recommend SCDs for DVT prophylaxis. We will continue to follow patient closely with you, making further changes as necessary.
[2016-06-17 07:18] LABS: Glucose,Whole Blood 185 mg/dL (75-99)
[2016-06-17 07:30] VITALS: RESP 20
[2016-06-17] MEDS: IPRATROPIUM-ALBUTEROL 3 ML NEB INHALATION SCH ×2 (07:46→11:19)
[2016-06-17] MEDS: BUDESONIDE 0.5 MG/2 ML NEBU INHALATION SCH (07:46)
[2016-06-17] MEDS: NICOTINE 14MG/24HR PATCH TRANSDERM SCH (07:47)
[2016-06-17] MEDS: FLUoxetine HCL 20 MG CAP PO SCH (07:48)
[2016-06-17] MEDS: methylPREDNISolone SOD SUCCI 40 MG/ML 1 ML VIAL IV SCH (07:48)
[2016-06-17] MEDS: LISINOPRIL 20 MG TAB PO SCH (07:48)
[2016-06-17] MEDS: AZITHROMYCIN 500 MG TAB PO SCH (07:48)
[2016-06-17] MEDS: PANTOPRAZOLE 40 MG TABLET PO SCH (07:48)
[2016-06-17] MEDS: INSULIN LISPRO (humaLOG) 300 UNIT/3 ML VIAL SQ SCH ×2 (07:48→13:06)
[2016-06-17] MEDS: METOPROLOL TARTRATE 50 MG TAB PO SCH (07:49)
[2016-06-17] MEDS ORDERED: FUROSEMIDE 20 MG TAB PO SCH (09:00)
[2016-06-17 09:30] LABS: Basophils % (A) 0 %; CH 29.8; Eosinophils % (A) 0 %; HCT 50.4 % (39.0-53.0); HDW 2.29; HGB 15.3 gm/dL (13.0-17.5); Hypochromasia Slight; Luc # (Auto) 0.06; Luc % (Auto) 0; Lymphocytes # (A) 0.4 k/uL (1.0-4.8); Lymphocytes % (A) 2 %; MCH 29.2 pg (25.0-35.0); MCHC 30.3 g/dL (31.0-37.0); MCV 96.5 fL (80.0-100.0); Mean Platelet Volume 6.9; Monocytes # (A) 0.4 k/uL (0-1.0); Monocytes % (A) 2 %; Neutrophils # (A) 17.8 k/uL (1.3-7.7); Neutrophils % (A) 95 %; RBC 5.22 m/uL (4.30-5.90); WBC 18.7 k/uL (3.8-10.6); WBC (Perox) 18.45
[2016-06-17 09:46] LABS: ALT 34 U/L (21-72); AST 18 U/L (17-59); Alkaline Phosphatase 70 U/L (38-126); Anion Gap 8 mmol/L; Blood Urea Nitrogen 63 mg/dL (9-20); Calcium 8.5 mg/dL (8.4-10.2); Carbon Dioxide 30 mmol/L (22-30); Chloride 97 mmol/L (98-107); Glucose 326 mg/dL (74-99); Non-African American GFR(MDRD) >60 (>60 ml/min/1.73 sqM); Potassium 4.7 mmol/L (3.5-5.1); Sodium 135 mmol/L (137-145); Total Bilirubin 0.8 mg/dL (0.2-1.3)
--- NOTE | 2016-06-17 10:40 | PN ---
SUBJECTIVE: 65-year-old white male, status post needle aspiration CT of the chest. Today is satting O2 is 2 liters. He has a small pneumothorax status post needle biopsy. CARDIOVASCULAR: S1 and S2. LUNGS: Transmitted upper airway sounds. HEMATOLOGIC: Negative Homans. ASSESSMENT: Pulmonary masses. Possible lung cancer treat for multiple pneumonia at this time with broad-spectrum antibiotics. CARDIOVASCULAR: S1, S2. LUNGS: Transmitted upper airway sounds, scattered rhonchi. HEMATOLOGIC: Negative Homans. PSYCHIATRIC: Fair mood and affect. ASSESSMENT: Await for pathology to come back on the successful CT-guided lung biopsy. Continue with broad-spectrum antibiotics for pneumonia, gram-negative pneumonia. Continue with IV steroids for chronic obstructive pulmonary disease exacerbation.
[2016-06-17] MEDS: SODIUM CHLORIDE 0.9% 1,000 ML IV SCH (11:32)
[2016-06-17 12:37] LABS: Glucose,Whole Blood 230 mg/dL (75-99)
[2016-06-17] MEDS: MULTIVITAMINS, THERA 1 EACH TAB PO SCH (13:06)
--- NOTE | 2016-06-17 14:13 | P.PN ---
Subjective Principal diagnosis: Lung mass Patient seen and examined. Patient states his breathing is good today. He did undergo CT-guided needle biopsy yesterday. He was found have a small apical pneumothorax. On the most recent chest x-ray appears to be resolved. The patient is currently on room air. He is hoping to go home today. Objective - Vital Signs Vital signs: Vital Signs Temp 96.3 F L 06/17/16 07:00 Pulse 72 06/17/16 11:29 Resp 20 06/17/16 08:00 BP 166/101 06/17/16 07:00 Pulse Ox 98 06/17/16 07:46 Intake & Output 06/16/16 06/17/16 06/17/16 18:59 06:59 18:59 Intake Total 970 490 Output Total 750 1500 Balance -750 -530 490 Weight 93 kg Intake: Oral 970 490 Output: Urine 750 1500 Other: Voiding Method Toilet Toilet Urinal Urinal # Voids 2 2 - Exam Gen.: Patient is alert and oriented 3, no acute distress Cardiovascular: Regular rate and rhythm, S1/S2 Lungs: Coarse breath sounds bilaterally Abdomen: Soft nontender nondistended positive bowel sounds Extremities: No edema - Labs CBC & Chem 7: 06/17/16 08:58 06/17/16 08:58 Labs: Abnormal Lab Results - Last 24 Hours (Table) 06/16/16 06/16/16 06/17/16 Range/Units 17:17 20:54 07:07 WBC (3.8-10.6) k/uL MCHC (31.0-37.0) g/dL Neutrophils # (1.3-7.7) k/uL Lymphocytes # (1.0-4.8) k/uL Sodium (137-145) mmol/L Chloride (98-107) mmol/L BUN (9-20) mg/dL Glucose (74-99) mg/dL POC Glucose (mg/dL) 245 H 265 H 185 H (75-99) mg/dL Total Protein (6.3-8.2) g/dL Albumin (3.5-5.0) g/dL 06/17/16 06/17/16 06/17/16 Range/Units 08:58 08:58 12:33 WBC 18.7 H (3.8-10.6) k/uL MCHC 30.3 L (31.0-37.0) g/dL Neutrophils # 17.8 H (1.3-7.7) k/uL Lymphocytes # 0.4 L (1.0-4.8) k/uL Sodium 135 L (137-145) mmol/L Chloride 97 L (98-107) mmol/L BUN 63 H (9-20) mg/dL Glucose 326 H (74-99) mg/dL POC Glucose (mg/dL) 230 H (75-99) mg/dL Total Protein 6.0 L (6.3-8.2) g/dL Albumin 3.3 L (3.5-5.0) g/dL Assessment and Plan Plan: Acute hypoxic respiratory failure Acute exacerbation of COPD Multiple worsening pulmonary nodules and masses Emphysema Small pericardial effusion History of atrial fibrillation Congestive heart failure, systolic, ejection fraction 35-40% Moderate pulmonary hypertension with an RVSP of 51 mmHg Active tobacco abuse Suspect possible underlying sleep apnea Small bilateral pleural effusions Coumadin coagulopathy O2 to maintain saturation greater than or equal to 88% Bronchodilators Pulmicort Steroid taper IV antibiotics Restart Coumadin Smoking cessation is highly recommended Incentive spirometry and pulmonary hygiene GI and DVT prophylaxis Ok to DC from pulmonary standpoint. Patient is advised to follow up in the office for biopsy results next week.
--- NOTE | 2016-06-17 14:21 | XR ---
EXAMINATION TYPE: XR chest 1V DATE OF EXAM: 06/17/2016 1:01 PM COMPARISON: 06/16/2016 HISTORY: 65-year-old male follow-up left pneumothorax, history of lung biopsy yesterday. TECHNIQUE: Single frontal view of the chest is obtained. FINDINGS: Heart is upper limits of normal in size. There is persistent left basilar retrocardiac opacity and rojas spected small effusion. There is focal density along the left heart margin which is sharply marginate d peripherally. Right perihilar mass again noted. The upper lung component of the pneumothorax is no longer seen. IMPRESSION: 1. The upper lung component of the pneumothorax is no longer seen. However, there is redemonstrated m ass along the left heart margin. The mass is sharply demarcated laterally and this could represent pl eura and mass pulled away from the lateral chest wall secondary to underlying pneumothorax. 2. Small left pleural effusion with adjacent atelectasis and/or consolidation. 3. Known right hilar mass
--- NOTE | 2016-06-17 15:11 | P.DS ---
Providers Date of admission: 06/09/16 10:15 Expected date of discharge: 06/17/16 Attending physician: Mervin Hackett Consults: 06/09/16 10:21 Consult Physician Urgent Consulting Provider: Mirza Buenrostro Consult Reason/Comments: chf Do you want consulting provider notified?: Yes 06/09/16 19:19 Consult Physician Routine Consulting Provider: Ivan Walsh Consult Reason/Comments: abnormal cxr Do you want consulting provider notified?: Yes Primary care physician: Shar De Los Santos MD Hospital Course: This is a 65-year-old male who presented to the emergency department complaining of shortness of breath and congestion for the last few days. The patient states that he did not have fevers at home but he did have chills. The patient's chest x-ray shows congestive heart failure, cardiomegaly, pulmonary vascular congestion, small bilateral effusions, emphysema, right hilar and left midlung nodularity. The patient did have a CT of the chest in 2015 which showed a 2.4 x 2.2 x 2.3 cm right middle lobe lung mass. It also showed a 0.7 cm lingula nodule. He did undergo repeat CT imaging during this admission which showed a right upper lobe 3.5 x 2.6 cm lung mass, a right lower lobe 4.4 x 2.9 cm lung mass, left upper lobe 2.7 cm lung mass, emphysema, small pericardial effusion, 1.6 cm subcarinal lymph node. The patient states he does not follow with any motion study technician in the office. He did have a PET scan in June 2015 which showed increased FDG activity in the right upper lobe mass and slight uptake in the right lower lobe mass. The patient did have an echocardiogram which showed an RVSP of 51 mmHg and an ejection fraction of 35-40%. The patient states he does use Symbicort twice a day at home. He denies any weight loss. He states his appetite has been good. He denies any cough. He is an active smoker although he states he quit a few days ago. He smokes a half a pack per day since the age of [age] years old. He is currently retired and working a few days a week at the local [employer]. He denies any snoring or sleep apnea. He does not wear oxygen at home. He was seen by pulmonology service. Patient did undergo a CT-guided needle biopsy on June 16. He was found to have a small apical pneumothorax. Repeat peak chest x-ray on the third was a noted improvement. Patient was maintained on room air keeping a sat 98% was felt to be appropriate to be discharged home Impression discharge diagnosis Present on admission shortness of breath multifactorial Acute hypoxic respiratory failure suspect due to an acute exacerbation of COPD Present on admission Acute exacerbation of COPD with acute tracheobronchitis Multiple worsening pulmonary nodules and masses Emphysema Small pericardial effusion Persistent chronic atrial fibrillation rate controlled Congestive heart failure, systolic, ejection fraction 35-40% per echocardiogram June 09 no evidence of decompensation Moderate pulmonary hypertension with an RVSP of 51 mmHg per echocardiogram June 09 Active tobacco abuse Suspect possible underlying sleep apnea Small bilateral pleural effusions Coumadin coagulopathy Obesity BMI 33 Chronic congestive heart failure systolic and diastolic dysfunction as evident on echocardiogram June 09 no evidence of decompensation status post CT-guided needle biopsy done June 16 developed a small right upper lobe pneumothorax 5-10% The above dictated assessment and findings were discussed with dr roxann Albright and the plan of care have been dictated as directed. Anna Lundberg nurse practitioner acting as a scribe for dr hackett Patient Condition at Discharge: Fair Plan - Discharge Summary New Discharge Prescriptions: Azithromycin [Zithromax] 500 mg PO DAILY #5 tab predniSONE 20 mg PO DAILY #12 tab Discharge Medication List Furosemide [Lasix] 40 mg PO QAM 11/10/14 [History] Lisinopril [Prinivil] 20 mg PO QAM 11/10/14 [History] Nitroglycerin Sl Tabs [Nitrostat] 0.4 mg SUBLINGUAL Q5M PRN 11/10/14 [History] Pravastatin Sodium [Pravachol] 40 mg PO HS 11/10/14 [History] Warfarin [Coumadin] 3 mg PO DAILY 11/10/14 [History] Multivitamin [Men's Multi-Vitamin] 1 tab PO DAILY 06/12/15 [History] FLUoxetine HCL [Fluoxetine HCl] 20 mg PO DAILY 07/23/15 [History] Metoprolol Tartrate [Lopressor] 100 mg PO BID 08/12/15 [History] Albuterol Sulfate [Ventolin HFA] 2 puff INHALATION RT-Q6H PRN 06/09/16 [History] Azithromycin [Zithromax] 500 mg PO DAILY #5 tab 06/17/16 [Rx] predniSONE 20 mg PO DAILY #12 tab 06/17/16 [Rx] Follow up Appointment(s)/Referral(s): Ginny Burgos DO [Doctor of Osteopathic Medicine] - 1 Week Shar De Los Santos MD [Primary Care Provider] - 3 Days ([facility] to schedule all appointments. ) Patient Instructions/Handouts: Heart Failure (DC), Type 2 Diabetes in Adults ( DC), COPD (Chronic Obstructive Pulmonary Disease) (DC) Activity/Diet/Wound Care/Special Instructions: NO smoking, cessation information provided. Cardiac, diabetic diet. Limit activity until follow up. Discharge Disposition: HOME SELF-CARE
[2016-06-17 15:40] VITALS: BP 153/91; PULSE 55; TEMP 96
[2016-06-18] MEDS ORDERED: predniSONE 20 MG TAB PO SCH (09:00)
== END 2016-06-17 16:08 | disposition home or self-care (01) | DRG 291 ==
LOC: EC 08:26 → 4MS4W 10:15
PROVIDERS: ADMIT Family Medicine; ATTEND Family Medicine
PROC: 0BBG3ZX Excision of Left Upper Lung Lobe, Percutaneous Approach, Diagnostic (ICD-10-PCS; principal; 2016-06-16)
DX: I11.0 Hypertensive heart disease with heart failure (principal); J96.01 Acute respiratory failure with hypoxia; J15.6 Pneumonia due to other Gram-negative bacteria; I31.3 Pericardial effusion (noninflammatory); C78.00 Secondary malignant neoplasm of unspecified lung; J45.902 Unspecified asthma with status asthmaticus; J44.0 Chronic obstructive pulmonary disease with (acute) lower respiratory infection; I42.9 Cardiomyopathy, unspecified; I48.1 Persistent atrial fibrillation; J44.1 Chronic obstructive pulmonary disease with (acute) exacerbation; J95.811 Postprocedural pneumothorax; I50.23 Acute on chronic systolic (congestive) heart failure; I27.2 Other secondary pulmonary hypertension; F20.9 Schizophrenia, unspecified; J20.9 Acute bronchitis, unspecified; G47.30 Sleep apnea, unspecified; F17.200 Nicotine dependence, unspecified, uncomplicated; E11.9 Type 2 diabetes mellitus without complications; E66.9 Obesity, unspecified; Z68.33 Body mass index [BMI] 33.0-33.9, adult; E78.5 Hyperlipidemia, unspecified; R79.1 Abnormal coagulation profile; F32.9 Major depressive disorder, single episode, unspecified; M19.91 Primary osteoarthritis, unspecified site; T45.515A Adverse effect of anticoagulants, initial encounter; Z87.898 Personal history of other specified conditions; Z98.42 Cataract extraction status, left eye; Z98.41 Cataract extraction status, right eye; Z96.1 Presence of intraocular lens; Z79.01 Long term (current) use of anticoagulants; Z79.899 Other long term (current) drug therapy; Z81.8 Family history of other mental and behavioral disorders; Y84.8 Other medical procedures as the cause of abnormal reaction of the patient, or of later complication, without mention of misadventure at the time of the procedure; Y92.239 Unspecified place in hospital as the place of occurrence of the external cause
CPT/HCPCS: 10022; 36415; 71010; 71020; 71260; 74177; 77012; 78306; 80053; 82550; 82553; 83036; 83735; 83880; 84484; 85025; 85049; 85610; 85730; 87040; 88173; 88305; 88341; 88342; 93005; 93306; 94640; 94644; 94760